=== PATIENT | male | born 1985 | race African-American/Black ===

== ENCOUNTER 2018-03-15 18:21 | Emergency (ER) | payer SELFPAY ==
[2018-03-15 18:37] VITALS: BP 121/71
[2018-03-15] MEDS ORDERED: IBUPROFEN 600 MG TABLET PO ONE (19:13)
[2018-03-15] MEDS ORDERED: SULFAMETHOXAZOLE/TRIMETHOPRIM 800-160 MG TABLET PO ONE (19:14)
--- NOTE | 2018-03-15 19:22 | ER Document Report ---
HPI - HPI Pain Level: 4 Notes: Patient is an otherwise healthy 32-year-old male who presents with chief complaint of possible boil to the left side of his face on his cheek. Patient reports this is been present for approximately 3 days. Patient denies a history of any similar incidences. Denies a history of MRSA or diabetes. - CONSTITUTIONAL Constitutional: DENIES: Fever, Chills - EENT EENT: DENIES: Sore Throat, Ear Pain, Eye problems - NEURO Neurology: DENIES: Headache, Weakness, Vision blurred, Dizzinesss / Vertigo - CARDIOVASCULAR Cardiovascular: DENIES: Chest pain - RESPIRATORY Respiratory: DENIES: Trouble Breathing, Coughing - GASTROINTESTINAL Gastrointestinal: DENIES: Abdominal Pain, Black / Bloody Stools - URINARY Urinary: DENIES: Dysuria, Urgency, Frequency - MUSCULOSKELETAL Musculoskeletal: DENIES: Extremity pain Past Medical History - General Information source: Patient - Social History Smoking Status: Never Smoker Chew tobacco use (# tins/day): No Frequency of alcohol use: None Drug Abuse: None Family History: Reviewed & Not Pertinent Patient has suicidal ideation: No Patient has homicidal ideation: No - Medical History Medical History: Negative Renal/ Medical History: Denies: Hx Peritoneal Dialysis Surgical Hx: Negative - Immunizations Immunizations up to date: Yes Vertical Provider Document - CONSTITUTIONAL Notes: PHYSICAL EXAMINATION: GENERAL: Well-appearing, well-nourished and in no acute distress. HEAD: Atraumatic, normocephalic. EYES: Pupils equal round extraocular movements intact, conjunctiva are normal. ENT: Nares patent NECK: Normal range of motion LUNGS: No respiratory distress Musculoskeletal: Normal range of motion NEUROLOGICAL: Normal speech, normal gait. PSYCH: Normal mood, normal affect. SKIN: Warm, Dry, normal turgor, no rashes or lesions noted. Area of erythema with induration noted however there is no fluctuance. The entire area measures approximately 1.5 cm x 1.5 cm. - INFECTION CONTROL TRAVEL OUTSIDE OF THE [place] IN LAST 30 DAYS: No Course - Re-evaluation Re-evalutation: The area of erythema with induration does not have any fluctuant area I do not feel that there is anything to drain at this time. I did have an extensive conversation with the patient about using warm compresses over the next several days, I explained to him that it may come to a head and he may need to come back into the ER to have it drained. However at this time I do not think we will get any drainage from it. I did place him on antibiotic and encouraged him to continue with the warm compresses. Patient verbalized understanding of instructions. - Vital Signs Vital signs: Temp Pulse Resp BP Pulse Ox 98.2 F 92 18 121/71 97 03/15/18 18:35 11 18:35 03/15/18 18:35 03/15/18 18:35 03/15/18 18:35 Discharge - Discharge Clinical Impression: Cellulitis Qualifiers: Site of cellulitis: face Qualified Code(s): L03.211 - Cellulitis of face Condition: Stable Disposition: HOME, SELF-CARE Additional Instructions: Cellulitis You have an infection of your skin and underlying soft tissues called cellulitis. This is due to bacteria, which can enter through any break in the skin, or even through an irritated hair follicle. Untreated, cellulitis will usually worsen. Antibiotics are required. Usually, warm packs or warm soaks, and elevation of the infected area are recommended. You should start getting better within 24 to 36 hours. Most infections respond quickly to the right medication. Follow-up care is important, however, to check for abscess (boil) formation, unsuspected foreign body, or resistant infection. If you develop fever, chills, or if the area of infection is becoming rapidly more swollen or painful, call the doctor at once. The area of your face that appears to be infected is not ready to be opened and drained. Please apply warm compresses to the area 3-4 times daily. Take the antibiotics as prescribed. If there becomes a soft spot on this or it comes to a head please return to the emergency department so we can open it and drain it. Please return if you develop fever, red streaking from the area or any other symptom that is concerning to you. Prescriptions: Sulfamethoxazole/Trimethoprim [Septra-Ds 800-160 mg Tablet] 1 tab PO BID #14 tablet Forms: Return to Work
== END 2018-03-15 19:25 | disposition home or self-care (01) ==
LOC: ER 18:21
DX: L03.211 Cellulitis of face (principal)
CPT/HCPCS: 99283

== ENCOUNTER 2018-03-25 11:11 | Emergency (ER) | payer SELFPAY ==
[2018-03-25 11:21] VITALS: BP 116/73
--- NOTE | 2018-03-25 12:47 | ER Document Report ---
ED Medical Screen (RME) - General Chief Complaint: Abscess Stated Complaint: POSSIBLE ABCESS Time Seen by Provider: 03/25/18 12:39 Mode of Arrival: Ambulatory Information source: Patient Notes: Patient is a 32-year-old male comes to emergency room complaining of an abscess to the left side of his face. Patient states there is been there for approximately 2 weeks. He denies trying to pop it himself and states that is starting to get too big. He denies that it has ever popped on its own and drained. He denies any fevers. He he denies any other medical problems. He denies any allergies to medications. TRAVEL OUTSIDE OF THE [place] IN LAST 30 DAYS: No - HPI Onset: Other - 2 weeks Onset/Duration: Gradual, Worse Quality of pain: Achy Severity: Moderate Pain Level: 3 Exacerbated by: Other - Touch Relieved by: Denies Similar symptoms previously: No Recently seen / treated by doctor: No - Related Data Smoking: Cigarettes, Less than 1 pack/day Frequency of alcohol use: Rare Drug Abuse: None Allergies/Adverse Reactions: No Known Allergies Allergy (Verified 03/25/18 11:13) Past Medical History - General Information source: Patient - Social History Cigarette use (# per day): Yes - 4 cigarettes a day Chew tobacco use (# tins/day): No Frequency of alcohol use: Rare Drug Abuse: None Family history: Reviewed & Not Pertinent Renal/ Medical History: Denies: Hx Peritoneal Dialysis - Immunizations Immunizations up to date: Yes Review of Systems - Review of Systems Constitutional: No symptoms reported EENT: No symptoms reported Cardiovascular: No symptoms reported Respiratory: No symptoms reported Gastrointestinal: No symptoms reported Genitourinary: No symptoms reported Male Genitourinary: No symptoms reported Musculoskeletal: No symptoms reported Skin: See HPI, Other - Abscess Hematologic/Lymphatic: No symptoms reported Neurological/Psychological: No symptoms reported -: Yes All other systems reviewed and negative Physical Exam - Vital signs Vitals: Temp Pulse Resp BP Pulse Ox 98.1 F 66 16 116/73 96 03/25/18 11:18 18 11:18 03/25/18 11:18 03/25/18 11:18 03/25/18 11:18 Interpretation: Normal - Notes Notes: Patient is a well-nourished well-developed 32-year-old male no apparent distress. Auscultation patient's lung arellano show he has bilateral breath sounds breath sounds are increasing clear to auscultation. Examination of patient's area of complaint shows her to be approximately a 1-1/2 -2 cm fluctuant abscess on the left side of his face right in the middle of the cheek. There is some mild erythema but no severe warmth. There is no extending cellulitis that can be identified at this time. Neurologically patient is intact. Course - Vital Signs Vital signs: Temp Pulse Resp BP Pulse Ox 98.1 F 66 16 116/73 96 03/25/18 11:18 03/25/18 11:18 03/25/18 11:18 03/25/18 11:18 03/25/18 11:18 Doctor's Discharge - Discharge Clinical Impression: Abscess Condition: Stable Disposition: HOME, SELF-CARE Instructions: Abscess ([facility])
[2018-03-25] MEDS ORDERED: LIDOCAINE 1% INJ-PF (10 MG/ML) 30 ML SDV INJ ONE (12:48)
--- NOTE | 2018-03-25 14:02 | ER Document Report ---
ED Skin Rash/Insect Bite/Abscs - General Chief Complaint: Abscess Stated Complaint: POSSIBLE ABCESS Time Seen by Provider: 03/25/18 12:39 Mode of Arrival: Ambulatory Information source: Patient Notes: Patient is a 32-year-old male comes emergency room complaining of an abscess on the left side of his face. Patient states his been approximately 2 weeks and has gotten bigger over the last couple days. He denies any fevers. He denies any other medical problems. TRAVEL OUTSIDE OF THE [place] IN LAST 30 DAYS: No - HPI Patient complains to provider of: Skin rash/lesion, Tender/swollen area Onset: Other - 2 weeks Severity: Moderate Pain Level: 2 Skin Character: Abscess Skin Temperature: Warm Quality of rash: Painful Identify cause: No Exacerbated by: Denies Relieved by: Denies Similar symptoms previously: Yes Recently seen / treated by doctor: No - Related Data Allergies/Adverse Reactions: No Known Allergies Allergy (Verified 03/25/18 11:13) Past Medical History - Social History Smoking Status: Current Every Day Smoker Cigarette use (# per day): Yes - 4 cigarettes a day Chew tobacco use (# tins/day): No Frequency of alcohol use: Rare Drug Abuse: None Family History: Reviewed & Not Pertinent Patient has suicidal ideation: No Patient has homicidal ideation: No Renal/ Medical History: Denies: Hx Peritoneal Dialysis - Immunizations Immunizations up to date: Yes Review of Systems - Review of Systems Constitutional: No symptoms reported EENT: No symptoms reported Cardiovascular: No symptoms reported Respiratory: No symptoms reported Gastrointestinal: No symptoms reported Genitourinary: No symptoms reported Male Genitourinary: No symptoms reported Musculoskeletal: No symptoms reported Skin: See HPI Hematologic/Lymphatic: No symptoms reported Neurological/Psychological: No symptoms reported -: Yes All other systems reviewed and negative Physical Exam - Vital signs Vitals: Temp Pulse Resp BP Pulse Ox 98.1 F 66 16 116/73 96 03/25/18 11:18 03/25/18 11:18 03/25/18 11:18 03/25/18 11:18 03/25/18 11:18 Interpretation: Normal - Notes Notes: PHYSICAL EXAMINATION: GENERAL: Well-appearing, well-nourished and in no acute distress. HEAD: Atraumatic, normocephalic. EYES: Pupils equal round and reactive to light, extraocular movements intact, sclera anicteric, conjunctiva are normal. ENT: Nares patent, oropharynx clear without exudates. Moist mucous membranes. NECK: Normal range of motion, supple without lymphadenopathy LUNGS: Breath sounds clear to auscultation bilaterally and equal. No wheezes rales or rhonchi. HEART: Regular rate and rhythm without murmurs ABDOMEN: Soft, nontender, nondistended abdomen. No guarding, no rebound. No masses appreciated. Musculoskeletal: Normal range of motion, no pitting or edema. No cyanosis. NEUROLOGICAL: Cranial nerves grossly intact. Normal speech, normal gait. Normal sensory, motor exams PSYCH: Normal mood, normal affect. SKIN: Physical exam patient's area of concern is his left cheek area. It is just slightly below his zygomatic process. It is approximately 2 and half centimeters wide and is very fluctuant on the surface and what appears to be a harder base. Patient states his been her 2 weeks and it is moderate erythema but no cellulitic in expansion at this time. Course - Re-evaluation Re-evalutation: 03/25/18 14:04 Patient had to wait quite a while to have the I&D done. He was put into fast track and I was under good fast track was not supposed to be seen in abscesses so I are meeting and moved him over the put him in 36 and since I was not overly inundated with fast track patient's I went ahead and kept the patient although I signed out on the chart. Anyway he had to wait for like 3 patients and when I went and he went off on me as far is given us a hard time about having to wait his legs were cramping he then just was very nasty started using multiple slang words and follow language and we had a nose to nose stop this kind of conversation relieve after he got a couple more words and we finally settled down and I cleaned the area and did the I&D. Was doing the I&D however the first part of the came out of a runny whitish pus kind of a presentation but I was not getting all the fluctuance out so went in on a lot broke up the loculations and as a started press it became apparent that the base of this was a sebaceous cyst. At that point the patient informed me that he has a history of these and was on the right side of his face last time. I do believe that most of this first part of it was a secondary infective kind of pus but the core portion of it was definitely a sebaceous presentation very thick and foul- smelling. I am still in place patient on antibiotics because of the original portion of it we are culturing the pus that came out and I have informed patient that he probably needs to see a surgeon to have this surgically removed especially on his face and that may have to be a plastics person. 03/25/18 14:06 We did finally come to terms and throughout the entire procedure patient was very stoic and at the end of he apologized. - Vital Signs Vital signs: Temp Pulse Resp BP Pulse Ox 98.1 F 66 16 116/73 96 03/25/18 11:18 03/25/18 11:18 03/25/18 11:18 03/25/18 11:18 03/25/18 11:18 Procedures - Incision and Drainage Left Face Time completed: 14:07 Type: Complex Anesthetic type: 1% Lidocaine mL's of anesthetic: 1 Blade size: 11 I&D procedure: Betadine prep applied, Sterile dressing applied Incision Method: Incision made by scalpel Amount/type of drainage: Moderate amount of liquidy white pus and a large amount of the sebaceous ma Notes: 03/25/18 14:[address] any type of a iodoform in the opening secondary to the fact this was a sebaceous cyst more than it was infected. Discharge - Discharge Clinical Impression: Abscess, Sebaceous cyst Condition: Stable Disposition: HOME, SELF-CARE Instructions: Abscess ([facility]) Additional Instructions: As I have indicated to you have 2 types of a presentation here in the first 1 was an abscess for sure that had lipid fluid and pus in it and the second thing is a sebaceous cyst. As of informed you sebaceous cyst will really have to be removed by a surgeon and being on the face I would highly recommend a cosmetic for a plastics surgeon to do it. I am still placing you on antibiotics to cover the first part of it you use warm moist compresses on a 3-4 times a day may help as well. As I said this may go away for the rest of your life or may come back next week I am not certain which. Should you have any concerns or problems please return the emergency room and let me take a look at it again. Prescriptions: Cephalexin Monohydrate [Keflex 500 mg Capsule] 500 mg PO Q6H 7 Days #28 capsule Hydrocodone/Acetaminophen [Flint 7.5-325 mg Tablet] 1 tab PO Q6 PRN #10 tablet PRN Reason: Sulfamethoxazole/Trimethoprim [Bactrim Ds Tablet] 1 each PO BID #20 tablet Forms: Smoking Cessation Education Referrals: [facility] [NO LOCAL MD] - Follow up as needed
== END 2018-03-25 14:22 | disposition home or self-care (01) ==
LOC: ER 11:11
DX: L72.3 Sebaceous cyst (principal); L02.01 Cutaneous abscess of face; F17.210 Nicotine dependence, cigarettes, uncomplicated
CPT/HCPCS: 87070; 87205; 99283

== ENCOUNTER 2018-07-04 16:48 | Emergency (ER) | payer SELFPAY ==
[2018-07-04 17:03] VITALS: BP 125/85
[2018-07-04] MEDS ORDERED: ONDANSETRON ODT 4 MG TAB (6 TAB/ER DISP) PO PRN (18:01)
--- NOTE | 2018-07-04 18:03 | ER Document Report ---
ED General - General Chief Complaint: Flu Symptoms Stated Complaint: FLU SYMPTOMS Time Seen by Provider: 07/04/18 17:56 Primary Care Provider: MICKY TRINIDAD MD [ACTIVE STAFF] - Follow up in 3-5 days (or your primary care. ) Notes: Patient is a 32-year-old male previously healthy that presents to the emergency department for chief complaint of nausea, vomiting diarrhea. Patient states his been having symptoms since Saturday, and have progressed over this period of time, has some mild abdominal cramping describes as a 1 out of 10 at this time, he has been able to drink, but he has been having significant nausea over the last several days, he was exposed to a child that was influenza positive, he has been having associated body aches, but denies fevers, chills, night sweats, neck stiffness, chest pain, cough, shortness of breath or difficulty breathing. Past Medical History: Denies chronic medical conditions Past Surgical History: Denies surgical history Social History: Admits to smoking cigarettes daily, denies alcohol or drug use. Family History: Reviewed and noncontributory for presenting illness Allergies: Reviewed, see documented allergy list. REVIEW OF SYSTEMS: Other than noted above, the 12 point review of systems was reviewed with the patient and were negative, all pertinent findings are included in the HPI. PHYSICAL EXAMINATION: Vital signs reviewed, nursing noted reviewed. GENERAL: Well-appearing, well-nourished and in no acute distress. HEAD: Atraumatic, normocephalic. EYES: Eyes appear normal, extraocular movements intact, sclera anicteric, conjunctiva are normal. ENT: nares patent, oropharynx clear without exudates. Moist mucous membranes. NECK: Normal range of motion, supple without lymphadenopathy LUNGS: Breath sounds clear to auscultation bilaterally and equal. No wheezes rales or rhonchi. HEART: Regular rate and rhythm without murmurs ABDOMEN: Soft, nontender, normoactive bowel sounds. No rebound, guarding, or rigidity. No masses appreciated. EXTREMITIES: Nontender, good range of motion, no pitting or edema. NEUROLOGICAL: No focal neurological deficits. Moves all extremities spontaneously Motor and sensory grossly intact on exam. PSYCH: Normal mood, normal affect. SKIN: Warm, Dry, normal turgor, no rashes or lesions noted on exposed skin TRAVEL OUTSIDE OF THE [place] IN LAST 30 DAYS: No - Related Data Allergies/Adverse Reactions: No Known Allergies Allergy (Verified 03/25/18 11:13) Past Medical History - Social History Smoking Status: Unknown if Ever Smoked Family History: Reviewed & Not Pertinent Patient has suicidal ideation: No Patient has homicidal ideation: No Renal/ Medical History: Denies: Hx Peritoneal Dialysis - Immunizations Immunizations up to date: Yes Physical Exam - Vital signs Vitals: Temp Pulse Resp BP Pulse Ox 98.2 F 80 18 125/85 97 07/04/18 17:01 07/04/18 17:01 07/04/18 17:01 07/04/18 17:01 07/04/18 17:01 Course - Re-evaluation Re-evalutation: Patient seen and examined, vital signs reviewed, patient appears well on exam, abdomen is nontender and nonfocal, patient appears well-hydrated. At this point will discharge the patient home with Zofran dispense pack, and provide him with a work note, advised hydration at home, he is given a prescription for Motrin to help with body aches, patient agreed with plan of care and advised follow-up with the primary care physician. - Vital Signs Vital signs: Temp Pulse Resp BP Pulse Ox 98.2 F 80 18 125/85 97 07/04/18 17:01 07/04/18 17:01 07/04/18 17:01 07/04/18 17:01 07/04/18 17:01 Discharge - Discharge Clinical Impression: Nausea and vomiting Qualifiers: Vomiting type: unspecified Vomiting Intractability: non-intractable Qualified Code(s): R11.2 - Nausea with vomiting, unspecified Diarrhea Qualifiers: Diarrhea type: unspecified type Qualified Code(s): R19.7 - Diarrhea, unspecified Condition: Stable Disposition: HOME, SELF-CARE Instructions: Diarrhea, Nonspecific ([facility]), Vomiting ([facility]) Additional Instructions: Please take the Zofran every 6-8 hours, to help with nausea, weight 20 minutes before trying to eat or drink, maintaining hydration using water and sports drinks, and broth, and slowly advance your diet. Your symptoms should start to resolve in the next 3-5 days. Prescriptions: Ibuprofen [Motrin 600 Mg Tablet] 600 mg PO TID #15 tablet Forms: Return to Work Referrals: MICKY TRINIDAD MD [ACTIVE STAFF] - Follow up in 3-5 days (or your primary care. )
== END 2018-07-04 18:08 | disposition home or self-care (01) ==
LOC: ER 16:48
DX: R11.2 Nausea with vomiting, unspecified (principal); R19.7 Diarrhea, unspecified; R10.9 Unspecified abdominal pain; F17.210 Nicotine dependence, cigarettes, uncomplicated
CPT/HCPCS: 99283

== ENCOUNTER 2018-07-23 00:40 | Emergency (ER) | payer SELFPAY ==
[2018-07-23] MEDS ORDERED: DOXYCYCLINE HYCLATE 100 MG TABLET PO ONE (01:57)
--- NOTE | 2018-07-23 02:37 | ER Document Report ---
ED General - General Chief Complaint: Abscess Stated Complaint: ABSCESS ON CHEST Time Seen by Provider: 07/23/18 01:40 TRAVEL OUTSIDE OF THE [place] IN LAST 30 DAYS: No - HPI Notes: Patient presents emergency department for evaluation of an abscess on his chest wall. It started over the last 2 days. He denies any fevers or chills. He states he has had some nausea. It was draining earlier. He has a history of similar abscess on his face which did require drainage. He has a mild aching pain there. - Related Data Allergies/Adverse Reactions: No Known Allergies Allergy (Verified 03/25/18 11:13) Past Medical History - General Information source: Patient - Social History Smoking Status: Current Every Day Smoker Frequency of alcohol use: Occasional Drug Abuse: None Family History: Reviewed & Not Pertinent Patient has suicidal ideation: No Patient has homicidal ideation: No Renal/ Medical History: Denies: Hx Peritoneal Dialysis - Immunizations Immunizations up to date: Yes Review of Systems - Review of Systems Constitutional: No symptoms reported EENT: No symptoms reported Cardiovascular: No symptoms reported Respiratory: No symptoms reported Gastrointestinal: See HPI Genitourinary: No symptoms reported Musculoskeletal: No symptoms reported Skin: See HPI Neurological/Psychological: No symptoms reported Physical Exam - Vital signs Notes: Temperature 97.2, pulse 86, blood pressure 128/79, respirations 16 and unlabored, O2 sat 98% on room air - Notes Notes: Patient is awake alert, cooperative with examiner. Head is normocephalic and atraumatic. Heart is regular rate and rhythm, lungs clear all station bilaterally. Abdomen soft nontender with normoactive bowel sounds. Examination of the skin of the chest wall yields a small pustule with some very mild drainage. There is surrounding induration of approximately 8 cm with associated calor. No other fluctuance is noted. Course - Re-evaluation Re-evalutation: 07/23/18 02:35 Patient presents to the emergency department for evaluation. It does appear that he has had a small abscess but it is already draining. The area was cleansed and a very scant amount of purulent drainage was expressed. At this point the rest seems to just be induration. He was treated with antibiotics here. We will send him home with prescription for same. He is to follow-up with primary care, return to the ED with worsening or new concerning symptoms of any sort. Discharge - Discharge Clinical Impression: Abscess or cellulitis of chest wall Condition: Stable Disposition: HOME, SELF-CARE Instructions: Abscess ([facility]), MRSA Cellulitis ([facility]) Additional Instructions: Take antibiotic as prescribed. Keep wound clean with soap and water. Follow-up with your doctor in 1-2 weeks. Return to the emergency department with worsening or new concerning symptoms of any sort. Forms: Return to Work
[2018-07-23 02:48] VITALS: BP 114/77
== END 2018-07-23 02:46 | disposition home or self-care (01) ==
LOC: ER 00:40
DX: L08.9 Local infection of the skin and subcutaneous tissue, unspecified (principal); R11.0 Nausea; F17.200 Nicotine dependence, unspecified, uncomplicated
CPT/HCPCS: 99282

== ENCOUNTER 2018-09-05 11:36 | Emergency (ER) | payer SELFPAY ==
[2018-09-05] MEDS ORDERED: KETOROLAC TROMETHAMINE 60 MG/2 ML SDV IM ONE (13:37)
[2018-09-05] MEDS ORDERED: LIDOCAINE 5% (700 MG) TRANSDERMAL ADH..PATCH TP ONE (13:37)
[2018-09-05] MEDS ORDERED: CYCLOBENZAPRINE HCL 10 MG TABLET PO ONE (13:37)
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
[2018-09-05 14:12] VITALS: BP 167/89
== END 2018-09-05 14:09 | disposition home or self-care (01) ==
LOC: ER 11:36
DX: M54.32 Sciatica, left side (principal); M54.5 Low back pain; G89.29 Other chronic pain; M79.605 Pain in left leg; X50.1XXA Overexertion from prolonged static or awkward postures, initial encounter
CPT/HCPCS: 99283; 96372; J1885

== ENCOUNTER 2019-03-31 11:44 | Emergency (ER) | payer SELFPAY ==
--- NOTE | 2019-03-31 11:56 | ER Document Report ---
HPI - HPI Patient complains to provider of: blood in urine Time Seen by Provider: 03/31/19 11:53 Onset: Yesterday Onset/Duration: Sudden Quality of pain: Achy Pain Level: 1 Context: This 33-year-old male presents emergency department with reports he has blood in his urine. Reports started last night. He reported drink a lot of water and is better today. He denies other symptoms such as fever vomiting diarrhea. Denies penile discharge. Denies testicular pain. Reports he is sexually active with one partner and does not use condoms. Patient reports that his stomach will feel little sore before he voids and that will go away. Reports this never happened before. Denies past medical history of cardiac disease diabetes high blood pressure as well. Associated Symptoms: None Exacerbated by: Denies Relieved by: Denies Similar symptoms previously: No Recently seen / treated by doctor: No Past Medical History - General Information source: Patient - Social History Smoking Status: Current Every Day Smoker Cigarette use (# per day): Yes Frequency of alcohol use: None Drug Abuse: None Family History: Reviewed & Not Pertinent Patient has suicidal ideation: No Patient has homicidal ideation: No - Medical History Medical History: Negative Renal/ Medical History: Denies: Hx Peritoneal Dialysis Surgical Hx: Negative - Immunizations Immunizations up to date: Yes Vertical Provider Document - CONSTITUTIONAL Agree With Documented VS: Yes Exam Limitations: No Limitations General Appearance: WD/WN, No Apparent Distress - INFECTION CONTROL TRAVEL OUTSIDE OF THE [place] IN LAST 30 DAYS: No - HEENT HEENT: Atraumatic, Normal ENT Exam, Normocephalic. negative: Conjuctival Injection, Pharyngeal Erythema, Tympanic Membrane Bulging - NECK Neck: Normal Inspection, Supple. negative: Lymphadenopathy-Left, Lymphadenopathy-Right - RESPIRATORY Respiratory: Breath Sounds Normal, No Respiratory Distress - CARDIOVASCULAR Cardiovascular: Regular Rate - GI/ABDOMEN Gastrointestinal: Abdomen Soft, Abdomen Non-Tender - BACK Back: Normal Inspection - MUSCULOSKELETAL/EXTREMETIES Musculoskeletal/Extremeties: CHAPIN SMITH - NEURO Level of Consciousness: Awake, Alert, Appropriate Motor/Sensory: No Motor Deficit - DERM Integumentary: Warm, Dry Discharge - Discharge Condition: Stable Disposition: HOME, SELF-CARE Additional Instructions: *You have been evaluated for blood in your urine, * *Follow up with a primary care provider within 1 week for recheck *Return to ED for worsening condition, changes, needs
[2019-03-31 12:34] LABS: APPEARANCE,URINE SLIGHTLY-CLOUDY; BILIRUBIN,URINE NEGATIVE (NEGATIVE); COLOR,URINE YELLOW; GLUCOSE, URINE NEGATIVE (NEGATIVE); KETONES,URINE TRACE mg/dL (NEGATIVE); LEUKOCYTE ESTERASE,URINE NEGATIVE (NEGATIVE); NITRITE,URINE NEGATIVE (NEGATIVE); PROTEIN,URINE 100 mg/dL (NEGATIVE); URINE SPECIFIC GRAVITY 1.029
--- NOTE | 2019-03-31 12:46 | ER Document Report ---
ED Medical Screen (RME) - General Chief Complaint: Urinary Problem Stated Complaint: POSSIBLE UNINARY PROBLEM Time Seen by Provider: 03/31/19 11:53 Mode of Arrival: Ambulatory Information source: Patient Notes: This 33-year-old male presents emergency department with reports he has blood in his urine. Reports started last night. He reported he drank a lot of water and is better today. He denies other symptoms such as fever vomiting diarrhea. Denies penile discharge. Denies testicular pain. Reports he is sexually active with one partner and does not use condoms. Patient reports abdominal pain before he voids but now constant. Reports this never happened before. Denies past medical history of cardiac disease diabetes high blood pressure as well. I have greeted and performed a rapid initial assessment of this patient. A comprehensive ED assessment and evaluation of the patient, analysis of test results and completion of the medical decision making process will be conducted by additional ED providers. Dictation of this chart was performed using voice recognition software; therefore, there may be some unintended grammatical errors. TRAVEL OUTSIDE OF THE [place] IN LAST 30 DAYS: No - Related Data Allergies/Adverse Reactions: No Known Allergies Allergy (Verified 03/31/19 11:49) Past Medical History - Social History Cigarette use (# per day): Yes Frequency of alcohol use: None Drug Abuse: None Family history: Reviewed & Not Pertinent Renal/ Medical History: Denies: Hx Peritoneal Dialysis Surgical Hx: Negative - Immunizations Immunizations up to date: Yes Physical Exam - Vital signs Vitals: Temp Pulse Resp BP Pulse Ox 97.7 F 92 18 135/79 H 98 03/31/19 11:50 03/31/19 11:50 03/31/19 11:50 03/31/19 11:50 03/31/19 11:50 Course - Vital Signs Vital signs: Temp Pulse Resp BP Pulse Ox 97.7 F 92 18 135/79 H 98 03/31/19 11:50 03/31/19 11:50 03/31/19 11:50 03/31/19 11:50 03/31/19 11:50 - Laboratory Laboratory results interpreted by me: 03/31/19 12:05 Urine Protein 100 H Urine Ketones TRACE H Urine Blood LARGE H Urine Urobilinogen 4.0 H Doctor's Discharge - Discharge Condition: Stable Disposition: HOME, SELF-CARE Additional Instructions: *You have been evaluated for blood in your urine, * *Follow up with a primary care provider within 1 week for recheck *Return to ED for worsening condition, changes, needs
[2019-03-31] MEDS ORDERED: KETOROLAC TROMETHAMINE INJ/PF 30 MG/1 ML SDV IV ONE (13:18)
[2019-03-31] MEDS ORDERED: NORMAL SALINE 1000 ML 1,000 ML IV ONE (13:18)
[2019-03-31 13:21] LABS: ABSOLUTE EOSINOPHILS # (AUTO) 0.3 10^3/uL (0.0-0.6); ABSOLUTE LYMPHOCYTES (AUTO) 1.1 10^3/uL (0.5-4.7); ABSOLUTE MONOCYTES (AUTO) 0.4 10^3/uL (0.1-1.4); ABSOLUTE NEUT (AUTO) 2.1 10^3/uL (1.7-8.2); BASOPHILS % (AUTO) 0.7 % (0-2); EOSINOPHILS % (AUTO) 7.2 % (0-6); HEMATOCRIT 41.5 % (37.9-51.0); HEMOGLOBIN 13.9 g/dL (13.5-17.0); LYMPHOCYTES % (AUTO) 27.4 % (13-45); MEAN CORPUSCULAR HEMOGLOBIN 30.1 pg (27.0-33.4); MEAN CORPUSCULAR HGB CONC 33.4 g/dL (32.0-36.0); MEAN CORPUSCULAR VOLUME 90 fl (80-97); MONOCYTES % (AUTO) 11.4 % (3-13); PLATELET COUNT 305 10^3/uL (150-450); RED BLOOD COUNT 4.61 10^6/uL (4.35-5.55); RED CELL DISTRIBUTION WIDTH 13.1 % (11.5-14.0); SEGMENTED NEUTROPHILS % (AUTO) 53.3 % (42-78); TOTAL CELLS COUNTED % (AUTO) 100 %; WHITE BLOOD COUNT 3.9 10^3/uL (4.0-10.5)
[2019-03-31 13:26] LABS: ALBUMIN 4.1 g/dL (3.5-5.0); ALKALINE PHOSPHATASE 47 U/L (38-126); ANION GAP 8 (5-19); ASPARTATE AMINO TRANSFERASE 21 U/L (17-59); BILIRUBIN,DIRECT 0.1 mg/dL (0.0-0.4); BILIRUBIN,TOTAL 0.9 mg/dL (0.2-1.3); BLOOD UREA NITROGEN 13 mg/dL (7-20); CALCIUM 9.4 mg/dL (8.4-10.2); CARBON DIOXIDE 28 mmol/L (22-30); CHLORIDE 106 mmol/L (98-107); GLUCOSE 82 mg/dL (75-110); POTASSIUM 4.1 mmol/L (3.6-5.0); TOTAL PROTEIN 7.5 g/dL (6.3-8.2)
--- NOTE | 2019-03-31 13:37 | ER Document Report ---
ED GI/ - General Chief Complaint: Urinary Problem Stated Complaint: POSSIBLE UNINARY PROBLEM Time Seen by Provider: 03/31/19 11:53 Primary Care Provider: [facility] [Provider Group] - Follow up as needed [facility] [Provider [facility]] - Follow up as needed Mode of Arrival: Ambulatory Information source: Patient Notes: Patient had blood in his urine that started yesterday. Patient also reports lower abdominal pain. Patient denies any fever nausea vomiting or diarrhea. Patient denies any drainage or discharge from the penis. TRAVEL OUTSIDE OF THE [place] IN LAST 30 DAYS: No - HPI Patient complains to provider of: Abdominal pain, Hematuria. No: Vomiting Onset: Yesterday Timing/Duration: Gradual Quality of pain: Sharp Pain Level: 4 Location: Suprapubic, Pelvis Sexual history: Active Associated symptoms: Hematuria. denies: Dysuria, Fever, Nausea, Urinary hesitancy, Urinary frequency, Urinary retention, Urinary urgency, Vomiting Exacerbated by: Denies Relieved by: Denies Similar symptoms previously: No Recently seen / treated by doctor: No - Related Data Allergies/Adverse Reactions: No Known Allergies Allergy (Verified 03/31/19 11:49) Past Medical History - General Information source: Patient - Social History Smoking Status: Current Every Day Smoker Cigarette use (# per day): Yes Frequency of alcohol use: None Drug Abuse: None Occupation: Foodservice Family History: Reviewed & Not Pertinent Patient has suicidal ideation: No Patient has homicidal ideation: No - Medical History Medical History: Negative Renal/ Medical History: Denies: Hx Peritoneal Dialysis Surgical Hx: Negative - Immunizations Immunizations up to date: Yes Review of Systems - Review of Systems Constitutional: No symptoms reported. denies: Fever EENT: No symptoms reported Cardiovascular: No symptoms reported. denies: Chest pain Respiratory: No symptoms reported. denies: Cough, Short of breath Gastrointestinal: Abdominal pain. denies: Vomiting Genitourinary: Hematuria. denies: Dysuria, Flank pain Male Genitourinary: No symptoms reported Musculoskeletal: No symptoms reported. denies: Back pain Skin: No symptoms reported Hematologic/Lymphatic: No symptoms reported Neurological/Psychological: No symptoms reported Physical Exam - Vital signs Vitals: Temp Pulse Resp BP Pulse Ox 97.7 F 92 18 135/79 H 98 03/31/19 11:50 03/31/19 11:50 03/31/19 11:50 03/31/19 11:50 03/31/19 11:50 - General General appearance: Appears well, Alert Notes: PHYSICAL EXAMINATION: GENERAL: Well-appearing and in no acute distress. HEAD: Atraumatic, normocephalic. EYES: sclera anicteric, conjunctiva are normal. ENT: nares patent. Moist mucous membranes. NECK: Normal range of motion, supple without lymphadenopathy LUNGS: CTAB and equal. No wheezes rales or rhonchi. HEART: Regular rate and rhythm without murmurs ABDOMEN: Soft, suprapubic tenderness, normal bowel sounds, no guarding. EXTREMITIES: Normal range of motion, no pitting edema. No cyanosis. BACK: Left CVA tenderness no midline tenderness, no step-off or deformity. NEUROLOGICAL: Cranial nerves grossly intact. Normal speech. Normal gait. PSYCH: Normal mood, normal affect. SKIN: Warm, Dry, normal turgor, no rashes or lesions noted Course - Re-evaluation Re-evalutation: 03/31/19 14:14 Patient's pain symptoms have resolved at this time. Patient without any fever, leukocytosis or UTI. Patient with a left ureteral stone. Patient advised of worsening signs or symptoms that he should return immediately for. Patient encouraged to follow-up with urology on an outpatient basis for recheck. - Vital Signs Vital signs: Temp Pulse Resp BP Pulse Ox 97.6 F 86 17 128/69 H 100 03/31/19 14:30 03/31/19 14:30 03/31/19 14:30 03/31/19 14:30 03/31/19 14:30 - Laboratory Result Diagrams: 03/31/19 12:50 03/31/19 12:50 Laboratory results interpreted by me: 03/31/19 03/31/19 12:05 12:50 WBC 3.9 L Eos % (Auto) 7.2 H Urine Protein 100 H Urine Ketones TRACE H Urine Blood LARGE H Urine Urobilinogen 4.0 H 03/31/19 14:47 Labs- Entire Visit 03/31/19 03/31/19 03/31/19 12:05 12:05 12:50 WBC 3.9 L RBC 4.61 Hgb 13.9 Hct 41.5 MCV 90 MCH 30.1 MCHC 33.4 RDW 13.1 Plt Count 305 Lymph % (Auto) 27.4 [place] % (Auto) 11.4 Eos % (Auto) 7.2 H Baso % (Auto) 0.7 Absolute Neuts (auto) 2.1 Absolute Lymphs (auto) 1.1 Absolute Monos (auto) 0.4 Absolute Eos (auto) 0.3 Absolute Basos (auto) 0.0 Seg Neutrophils % 53.3 Sodium Potassium Chloride Carbon Dioxide Anion Gap BUN Creatinine Est GFR ( Amer) Est GFR (MDRD) Non-Af Glucose Calcium Total Bilirubin Direct Bilirubin Neonat Total Bilirubin Neonat Direct Bilirubin Neonat Indirect Bili AST ALT Alkaline Phosphatase Total Protein Albumin Urine Color YELLOW Urine Appearance SLIGHTLY-CLOUDY Urine pH 6.0 Ur Specific [place] 1.029 Urine Protein 100 H Urine Glucose (UA) NEGATIVE Urine Ketones TRACE H Urine Blood LARGE H Urine Nitrite NEGATIVE Urine Bilirubin NEGATIVE Urine Urobilinogen 4.0 H Ur Leukocyte Esterase NEGATIVE Urine WBC (Auto) 3 Urine RBC (Auto) >182 Urine Bacteria (Auto) TRACE Urine Mucus (Auto) MANY Urine Ascorbic Acid NEGATIVE Chlamydia DNA (PCR) NOT DETECTED N.gonorrhoeae DNA (PCR) NOT DETECTED 03/31/19 12:50 WBC RBC Hgb Hct MCV MCH MCHC RDW Plt Count Lymph % (Auto) [place] % (Auto) Eos % (Auto) Baso % (Auto) Absolute Neuts (auto) Absolute Lymphs (auto) Absolute Monos (auto) Absolute Eos (auto) Absolute Basos (auto) Seg Neutrophils % Sodium 142.2 Potassium 4.1 Chloride 106 Carbon Dioxide 28 Anion Gap 8 BUN 13 Creatinine 1.19 Est GFR ( Amer) > 60 Est GFR (MDRD) Non-Af > 60 Glucose 82 Calcium 9.4 Total Bilirubin 0.9 Direct Bilirubin 0.1 Neonat Total Bilirubin Not Reportable Neonat Direct Bilirubin Not Reportable Neonat Indirect Bili Not Reportable AST 21 ALT 15 Alkaline Phosphatase 47 Total Protein 7.5 Albumin 4.1 Urine Color Urine Appearance Urine pH Ur Specific [place] Urine Protein Urine Glucose (UA) Urine Ketones Urine Blood Urine Nitrite Urine Bilirubin Urine Urobilinogen Ur Leukocyte Esterase Urine WBC (Auto) Urine RBC (Auto) Urine Bacteria (Auto) Urine Mucus (Auto) Urine Ascorbic Acid Chlamydia DNA (PCR) N.gonorrhoeae DNA (PCR) - Diagnostic Test Radiology reviewed: Reports reviewed Discharge - Discharge Clinical Impression: Ureteral stone Hematuria Qualifiers: Hematuria type: unspecified type Qualified Code(s): R31.9 - Hematuria, unspecified Condition: Stable Disposition: HOME, SELF-CARE Additional Instructions: Return immediately for any new or worsening symptoms Followup with a urologist, call tomorrow to make a followup appointment KIDNEY STONE: You are passing or have passed a kidney stone. These stones are usually due to increased calcium or uric acid concentrations in your urine. Stones within the kidney itself are not painful. The pain occurs as the stone leaves the kidney to pass down the long tube, called the ureter, leading to the bladder. If the stone is small, it will usually pass by itself. Most patients can pass the stone at home. You will usually receive medications for pain, nausea or vomiting, and sometimes a medication to assist in passing the kidney stone. However, if the pain is very severe or if vomiting prevents you from taking oral pain medications, you may need to return for further treatment. Drink three or four quarts of fluids per day. You will be given pain me dication (if needed) and urine strainers. Strain all your urine to see if the stone passes. If your doctor has asked you to bring the stone in for analysis, return with the stone once it has passed. Return if pain or vomiting become severe, if you develop a high fever, if you are unable to pass your urine, or if other unusual symptoms occur. TORADOL INJECTION: You have been given an injection of ketorolac tromethamine (Toradol). This is an excellent, safe drug for pain control. It also has potent antiinflammatory action. You should have significant pain relief within about one hour. Toradol is not addicting and is non-sedating. It does not interfere with driving or work. Call or return if you develop itching, hives, shortness of breath, or rash. ANTINAUSEA MEDICATION: You have been given a medication to suppress nausea and vomiting. This type of medication can be given as a shot, pill, or suppository. It will usually last for many hours. Pills and shots usually last six to eight hours, suppositories last about 12 hours. For the typical illness, only one or two doses of the medication may be necessary. Mild lightheadedness may occur. This type of medicine can cause drowsiness. Do not drive or operate dangerous machinery while under its i nfluence. Do not mix with alcohol. See your doctor at once if you have muscle spasms or tightness, or uncontrollable motions (particularly of the neck, mouth, or jaw). Persistent vomiting or severe lightheadedness should also be evaluated by the physician. ORAL NARCOTIC MEDICATION: You have been given a prescription for pain control. This medication is a narcotic. It's best taken with food, as nausea can result if taken on an empty stomach. Don't operate machinery or drive within six hours of taking this medication. Do not combine this medicine with alcohol, or with any medication which can cause sedation (such as cold tablets or sleeping pills) unless you get permission from the physician. Narcotics tend to cause constipation. If possible, drink plenty of fluids and eat a diet high in fiber and fruits. Please be aware that prescription narcotics also have the potential for abuse. People become addicted to these medications because of the general sense of wellbeing that they induce. This feeling along with a significant reduction in tension, anxiety, and aggression provides a stimulating seductive quality to these drugs. Once your pain is under control, we encourage you to discard your unused narcotics. FLOMAX (tamsulosin): Flomax is a medicine that shrinks the prostate gland. It helps relieve symptoms of benign prostatic hypertrophy, such as frequent urination, weak stream, and inadequate emptying. It has been shown to dilate the ureter (tube leading from the kidney to the bladder) and help in passing kidney stones Flomax usually causes no side effects. You may notice slight tiredness and dizziness for a few days. Some patients develop nasal congestion. Rarely, impotence can occur. If the symptoms are bothersome and don't improve with continued use, call your doctor. Contact your doctor or return if you have fainting spells, severe weakness or dizziness, shortness of breath, or rash. FOLLOW-UP CARE: If you have been referred to a physician for follow-up care, call the physicians office for an appointment as you were instructed or within the next two days. If you experience worsening or a significant change in your symptoms, notify the physician immediately or return to the Emergency Department at any time for re-evaluation. Prescriptions: Tamsulosin HCl [Flomax 0.4 mg Cap.sr] 0.4 mg PO DAILY #7 cap.sr.24h Hydrocodone/Acetaminophen [[place] 5-325 mg Tablet] 1 tab PO Q6 PRN #15 tablet PRN Reason: Ondansetron HCl [Zofran 4 mg Tablet] 1 - 2 tab PO Q6 PRN #15 tablet PRN Reason: Forms: Return to Work Referrals: [facility] [Provider Group] - Follow up as needed [facility]] - Follow up as needed
--- NOTE | 2019-03-31 13:41 | RADIOLOGY REPORT (SQ) ---
EXAM DESCRIPTION: CT ABD/PELVIS NO ORAL OR IV COMPLETED DATE/TIME: 03/31/2019 1:27 pm REASON FOR STUDY: L flank, suprapubic pain, +hematuria COMPARISON: None. TECHNIQUE: CT scan of the abdomen and pelvis performed without intravenous or oral contrast. Images reviewed with lung, soft tissue, and bone windows. Reconstructed coronal and sagittal MPR images revi ewed. All images stored on PACS. All CT scanners at this facility use dose modulation, iterative reconstruction, and/or weight based d osing when appropriate to reduce radiation dose to as low as reasonably achievable (ALARA). [facility]: Dose Right [facility]: CareDose [facility]: Dose Right [facility]: Teradose 4D [facility]: Smart HipSwap RADIATION DOSE: CT Rad equipment meets quality standard of care and radiation dose reduction techniq ues were employed. CTDIvol: 6.8 mGy. DLP: 380 mGy-cm.mGy. LIMITATIONS: None. FINDINGS: A 2 mm stone is present at the left ureterovesical junction, causing mild left hydronephro sis and hydroureter. Stone is best shown on axial image 74/100, and coronal image 34/67. No cystic or solid lesions left kidney. No left intrarenal nonobstructive calculi. No other left-si ded ureteral stones. LOWER CHEST: No significant findings. No nodules or infiltrates. NON-CONTRASTED LIVER, SPLEEN, ADRENALS: Evaluation limited by lack of IV contrast. No identified sign ificant masses. PANCREAS: No masses. No peripancreatic inflammatory changes. GALLBLADDER: No identified stones by CT criteria. No inflammatory changes to suggest cholecystitis. RIGHT KIDNEY AND URETER: No suspicious masses. Assessment limited by lack of IV contrast. No signif icant calcifications. No hydronephrosis or hydroureter. LEFT KIDNEY AND URETER: As above. AORTA AND RETROPERITONEUM: No aneurysm. No retroperitoneal masses or adenopathy. BOWEL AND PERITONEAL CAVITY: No obvious masses or inflammatory changes. No free fluid. APPENDIX: Normal. PELVIS, BLADDER, AND ABDOMINAL WALL:No abnormal masses. No free fluid. Bladder normal. BONES: No significant findings. OTHER: No other significant finding. IMPRESSION: 2 mm left ureterovesical junction stone with mild left hydronephrosis and hydroureter COMMENT: Quality ID # [id number]: Final reports with documentation of one or more dose reduction techniques (e.g., Automated exposure control, adjustment of the mA and/or kV according to patient size, use of iterative reconstruction technique) TECHNICAL DOCUMENTATION: JOB ID: [id number] [employer]- All Rights Reserved Reading location - IP/workstation name: [email or web address]
[2019-03-31] MEDS ORDERED: TAMSULOSIN HCL 0.4 MG CAP.SR.24H PO ONE (14:04)
[2019-03-31 14:06] LABS: CHLAM PCR NOT DETECTED (NOT DETECT)
[2019-03-31 14:32] VITALS: BP 128/69
== END 2019-03-31 14:32 | disposition home or self-care (01) ==
LOC: ER 11:44
DX: N13.2 Hydronephrosis with renal and ureteral calculous obstruction (principal); R31.9 Hematuria, unspecified; R10.2 Pelvic and perineal pain; F17.210 Nicotine dependence, cigarettes, uncomplicated
CPT/HCPCS: 36415; 85025; 80053; 81001; 87491; 87591; 74176; J1885; J7030; 96361; 96374; 99284